=== PATIENT | male | born 1950 | race Caucasian/White ===

== ENCOUNTER → 2024-06-30 | Outpatient (CLI) | payer MEDICARE, SELFPAY ==
[2024-06-30 11:28] LABS: Basophils # (Auto) 0.1 Thou/mm3 (0.0-0.2); Basophils % (Auto) 1 % (0-2.5); Eosinophils # (Auto) 0.5 Thou/mm3 (0.0-0.5); Eosinophils % (Auto) 5 % (0-10); Hematocrit 47.3 % (41.0-53.0); Hemoglobin 15.7 g/dL (13.5-16.0); Immature Granulocytes % (Auto) 1 % (0-0); Immature Granulocytes Auto 0.08 Thou/mm3 (0.00-0.00); Lymphocytes # (Auto) 3.5 Thou/mm3 (1.0-4.8); Lymphocytes % (Auto) 36 % (10-50); Mean Corpuscular HGB Conc 33.2 g/dl (31.0-37.0); Mean Corpuscular Hemoglobin 30.5 pg (25.0-35.0); Mean Corpuscular Volume 92 fL (80-100); Monocytes # (Auto) 0.7 Thou/mm3 (0.0-0.8); Monocytes % (Auto) 7 % (0-12); Neutrophils % (Auto) 51 % (37-80); Nucleated Red Blood Cell % 0 /100 WBC (0); Platelet Count 176 Thou/mm3 (140-440); RDW Standard Deviation 45.6 fL (35.1-43.9); Red Blood Count 5.15 Miln/mm3 (4.50-5.90); White Blood Count 9.8 Thou/mm3 (3.8-10.6)
[2024-06-30 12:02] LABS: Alanine Aminotransferase 21 U/L (10-49); Albumin, Serum 4.8 gm/dL (3.4-4.8); Albumin/Globulin Ratio 1.8 (1.2-2.2); Alkaline Phosphatase 77 U/L (46-116); Anion Gap 8 (7-16); Aspartate Amino Transferase 18 U/L (0-34); BUN/Creatinine Ratio 14 Ratio (12-20); Bilirubin,Total 0.5 mg/dL (0.3-1.2); Blood Urea Nitrogen 23 mg/dL (9-23); Calcium 9.6 mg/dL (8.3-10.6); Calcium (Corrected) 9.6 mg/dL (8.5-10.1); Carbon Dioxide 27.3 mMol/L (20.0-31.0); Chloride 106 mMol/L (98-107); Creatinine (Component) 1.6 mg/dL (0.6-1.3); Globulin 2.6 gm/dL (2.3-3.5); Glucose 101 mg/dL (74-106); Osmolality,Calculated 284 (275-295); Potassium 5.1 mMol/L (3.4-5.1); Sodium 141 mMol/L (136-145); Total Protein 7.4 gm/dL (5.7-8.2); eGFR 45 See Note
== END | disposition home or self-care (01) ==
LOC: COPL 10:48
PROVIDERS: PCP Internal Medicine; Referring Provider Urology; Visit Provider Urology
DX: N40.1 Benign prostatic hyperplasia with lower urinary tract symptoms (principal)
CPT/HCPCS: 36415; 80053; 85025

== ENCOUNTER → 2024-07-05 | Outpatient (BNVA) | payer MEDICARE, SELFPAY | END | disposition home or self-care (01) | PROVIDERS: PCP Internal Medicine; Referring Provider Internal Medicine; Visit Provider Urology | DX: C64.1 Malignant neoplasm of right kidney, except renal pelvis (principal); N40.0 Benign prostatic hyperplasia without lower urinary tract symptoms; I12.9 Hypertensive chronic kidney disease with stage 1 through stage 4 chronic kidney disease, or unspecified chronic kidney disease; N18.30 Chronic kidney disease, stage 3 unspecified; E66.01 Morbid (severe) obesity due to excess calories; Z68.41 Body mass index [BMI] 40.0-44.9, adult | CPT/HCPCS: 81003; 99212; G0463 ==

== ENCOUNTER → 2024-07-06 | Outpatient (CLI) | payer MEDICARE, SELFPAY ==
--- NOTE | 2024-07-06 09:46 | XR_ITS ---
Examination: PA lateral chest 2 views TECHNIQUE: Upright PA lateral chest 2 views Exam date and time: June 28, 2024 1016 hours INDICATIONS: Pulmonary nodules noted on CT chest 02/25/2024 FINDINGS: Subtle opacity at the left apex obscuring detail left cardiac contour Normal heart size Prominent osteopenia IMPRESSION: Recommend repeat CT chest study to exclude mass versus parenchymal disease in the left upper lobe
== END | disposition home or self-care (01) ==
PROVIDERS: PCP Internal Medicine; Referring Provider Urology; Visit Provider Urology
DX: C64.1 Malignant neoplasm of right kidney, except renal pelvis (principal)
CPT/HCPCS: 71046

== ENCOUNTER → 2024-07-28 | Outpatient (CLI) | payer MEDICARE, SELFPAY ==
[2024-07-28 11:32] LABS: Basophils % (Auto) 1 % (0-2.5); Eosinophils # (Auto) 0.6 Thou/mm3 (0.0-0.5); Eosinophils % (Auto) 10 % (0-10); Hematocrit 45.6 % (41.0-53.0); Hemoglobin 15.2 g/dL (13.5-16.0); Immature Granulocytes % (Auto) 1 % (0-0); Immature Granulocytes Auto 0.03 Thou/mm3 (0.00-0.00); Lymphocytes # (Auto) 2.2 Thou/mm3 (1.0-4.8); Lymphocytes % (Auto) 35 % (10-50); Mean Corpuscular HGB Conc 33.3 g/dl (31.0-37.0); Mean Corpuscular Hemoglobin 30.5 pg (25.0-35.0); Mean Corpuscular Volume 92 fL (80-100); Monocytes # (Auto) 0.6 Thou/mm3 (0.0-0.8); Monocytes % (Auto) 10 % (0-12); Neutrophils # (Auto) 2.7 Thou/mm3 (1.8-7.7); Neutrophils % (Auto) 44 % (37-80); Nucleated Red Blood Cell % 0 /100 WBC (0); Platelet Count 143 Thou/mm3 (140-440); RDW Standard Deviation 45.4 fL (35.1-43.9); Red Blood Count 4.98 Miln/mm3 (4.50-5.90); White Blood Count 6.1 Thou/mm3 (3.8-10.6)
[2024-07-28 12:19] LABS: Parathyroid Hormone Intact 54.3 pg/ml (18.5-88.0)
[2024-07-28 12:21] LABS: Glucose Estimated Average 128 mg/dL (80-131); Hemoglobin A1C 6.1 % Hgb (4.8-6.0)
[2024-07-28 12:26] LABS: Alanine Aminotransferase 21 U/L (10-49); Albumin, Serum 4.4 gm/dL (3.4-4.8); Albumin/Globulin Ratio 1.6 (1.2-2.2); Alkaline Phosphatase 74 U/L (46-116); Anion Gap 8 (7-16); Aspartate Amino Transferase 20 U/L (0-34); BUN/Creatinine Ratio 14 Ratio (12-20); Bilirubin,Total 0.5 mg/dL (0.3-1.2); Blood Urea Nitrogen 20 mg/dL (9-23); Calcium 9.8 mg/dL (8.3-10.6); Calcium (Corrected) 9.8 mg/dL (8.5-10.1); Carbon Dioxide 28.3 mMol/L (20.0-31.0); Cardiac Risk Estimate 4.7 RATIO (4.0-6.7); Chloride 106 mMol/L (98-107); Cholesterol 161 mg/dL (132-200); Creatinine (Component) 1.4 mg/dL (0.6-1.3); Globulin 2.7 gm/dL (2.3-3.5); Glucose 99 mg/dL (74-106); HDL Cholesterol 34 mg/dL (40-60); LDL Cholesterol,Calculated 103 mg/dL (0-130); Osmolality,Calculated 285 (275-295); Potassium 4.8 mMol/L (3.4-5.1); Sodium 142 mMol/L (136-145); Total Protein 7.1 gm/dL (5.7-8.2); Triglycerides 120 mg/dL (30-150); eGFR 53 See Note
== END | disposition home or self-care (01) ==
LOC: COPL 10:16
PROVIDERS: PCP Internal Medicine; Referring Provider Internal Medicine; Visit Provider Internal Medicine
DX: I12.9 Hypertensive chronic kidney disease with stage 1 through stage 4 chronic kidney disease, or unspecified chronic kidney disease (principal); N18.30 Chronic kidney disease, stage 3 unspecified; E78.5 Hyperlipidemia, unspecified; R73.03 Prediabetes
CPT/HCPCS: 36415; 80053; 80061; 83036; 83970; 85025

== ENCOUNTER → 2024-09-16 | Outpatient (CLI) | payer MEDICARE, SELFPAY ==
[2024-09-16 10:06] LABS: Alanine Aminotransferase 16 U/L (10-49); Albumin, Serum 4.3 gm/dL (3.4-4.8); Albumin/Globulin Ratio 1.5 (1.2-2.2); Alkaline Phosphatase 71 U/L (46-116); Anion Gap 7 (7-16); Aspartate Amino Transferase 17 U/L (0-34); BUN/Creatinine Ratio 15 Ratio (12-20); Bilirubin,Total 0.5 mg/dL (0.3-1.2); Blood Urea Nitrogen 25 mg/dL (9-23); Calcium 9.4 mg/dL (8.3-10.6); Calcium (Corrected) 9.4 mg/dL (8.5-10.1); Carbon Dioxide 25.6 mMol/L (20.0-31.0); Chloride 107 mMol/L (98-107); Creatinine (Component) 1.7 mg/dL (0.6-1.3); Globulin 2.8 gm/dL (2.3-3.5); Glucose 119 mg/dL (74-106); Osmolality,Calculated 284 (275-295); Potassium 4.7 mMol/L (3.4-5.1); Sodium 140 mMol/L (136-145); Total Protein 7.1 gm/dL (5.7-8.2); eGFR 42 See Note
== END | disposition home or self-care (01) ==
LOC: COPL 08:15
PROVIDERS: PCP Internal Medicine; Referring Provider Urology; Visit Provider Urology
DX: C64.1 Malignant neoplasm of right kidney, except renal pelvis (principal)
CPT/HCPCS: 36415; 80053

== ENCOUNTER → 2024-09-22 | Outpatient (CLI) | payer MEDICARE, SELFPAY ==
--- NOTE | 2024-09-22 11:00 | XR_ITS ---
Examination: CT chest with intravenous contrast 2-D sagittal and coronal reconstructions Exam date and time: September 22, 2024 1057 hours Comparison 02/24/2014 INDICATIONS: Diagnosis malignant neoplasm right kidney 2023, bilateral pulmonary nodules on CT chest 02/25/2024 weeks staging CTDI:vol (mGy) 25.2 DLP: (mGycm) 1042 Technique: Multiple axial sections of the thorax have been obtained. Sections have been obtained, 3 mm slice thickness. Mediastinal and lung density settings have been obtained. Intravenous contrast administered, 30 cc Isovue-300. 2-D sagittal, coronal images obtained. Low dose protocols were performed. One or more of the following dose reduction techniques were used; automated exposure control, adjustment of the mA and/or KV according to patient size, use of iterative reconstruction technique. Findings: Stable tiny lymph nodes in the high left periaortic region No thoracic aortic aneurysm dilatation Pulmonary artery filling defects not identified No interval paratracheal tracheobronchial or bronchopulmonary adenopathy Bilateral lung nodules again noted Nodule in the left lower lobe measures 11 mm compared to 5 mm on 02/25/2024 No interval pneumonia or pulmonary edema No visualized liver or splenic lesion No gallstones Absent right kidney IMPRESSION: Enlarging nodule in the left lower lobe, 11 mm currently compared to 5 mm on 02/25/2024 suspicious for pulmonary nodular metastatic disease
--- NOTE | 2024-09-22 11:30 | XR_ITS ---
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 CTDI: vol (mGy) 34 DLP: (mGycm) 2263 Technique: Multiple axial sections of the abdomen and pelvis have been obtained. 64 slice high-resolution scanner used. 3 mm axial sections have been obtained, post intravenous injection 30 cc Isovue-300 2-D sagittal, coronal reconstructions obtained. Low dose protocols were performed. One or more of the following dose reduction techniques were used; automated exposure control, adjustment of the mA and/or KV according to patient size, use of iterative reconstruction technique. Findings: No focal liver or splenic lesions No gallstones No pancreatic mass Absent right kidney No enhancing left renal mass lesion No interval abdominal or pelvic lymphadenopathy No bowel obstruction Absent appendix No diverticulitis No bladder mass or bladder calculi Transverse prostate dimension 5.2 cm Advanced disc narrowing L4-L5, L5-S1 IMPRESSION: No interval metastatic disease
== END | disposition home or self-care (01) ==
PROVIDERS: PCP Internal Medicine; Referring Provider Urology; Visit Provider Urology
DX: R91.8 Other nonspecific abnormal finding of lung field (principal); C64.1 Malignant neoplasm of right kidney, except renal pelvis
CPT/HCPCS: 71260; 74177; A4649; Q9967

== ENCOUNTER → 2024-11-23 | Outpatient (CLI) | payer MEDICARE, SELFPAY ==
[2024-11-23 08:10] LABS: Collection Type, Urine Clean Catch
[2024-11-23 08:40] LABS: Basophils # (Auto) 0.1 Thou/mm3 (0.0-0.2); Basophils % (Auto) 1 % (0-2.5); Eosinophils # (Auto) 0.3 Thou/mm3 (0.0-0.5); Eosinophils % (Auto) 3 % (0-10); Hematocrit 49.9 % (41.0-53.0); Hemoglobin 16.6 g/dL (13.5-16.0); Immature Granulocytes % (Auto) 1 % (0-0); Immature Granulocytes Auto 0.04 Thou/mm3 (0.00-0.00); Lymphocytes # (Auto) 3.1 Thou/mm3 (1.0-4.8); Lymphocytes % (Auto) 37 % (10-50); Mean Corpuscular HGB Conc 33.3 g/dl (31.0-37.0); Mean Corpuscular Hemoglobin 30.7 pg (25.0-35.0); Mean Corpuscular Volume 92 fL (80-100); Monocytes # (Auto) 0.6 Thou/mm3 (0.0-0.8); Monocytes % (Auto) 7 % (0-12); Neutrophils # (Auto) 4.5 Thou/mm3 (1.8-7.7); Neutrophils % (Auto) 52 % (37-80); Nucleated Red Blood Cell % 0 /100 WBC (0); Platelet Count 168 Thou/mm3 (140-440); RDW Standard Deviation 46.5 fL (35.1-43.9); White Blood Count 8.6 Thou/mm3 (3.8-10.6)
[2024-11-23 08:46] LABS: Glucose Estimated Average 131 mg/dL (80-131); Hemoglobin A1C 6.2 % Hgb (4.8-6.0)
[2024-11-23 08:47] LABS: Bilirubin,Urine Negative (Negative); Blood,Urine Negative (Negative); Clarity,Urine Clear (Clear/Hazy); Color,Urine Yellow (Lt Yel-Yel); Glucose, Urine Negative (Negative); Ketones,Urine Negative (Negative); Leukocyte Esterase,Urine Negative (Negative); Nitrite,Urine Negative (Negative); PH,Urine 5.5 (5.0-7.0); Protein,Urine Negative (Neg - Trace); RBC,Urine 1 /hpf (0-3); Specific Gravity,Urine 1.018 (1.001-1.035); Squamous Epithelial Cell,Urine < 1 /hpf (0-5); Urobilinogen,Urine Negative mg/dL (0.0-1.0); WBC,Urine < 1 /hpf (0-5)
[2024-11-23 08:54] LABS: Parathyroid Hormone Intact 25.4 pg/ml (18.5-88.0)
[2024-11-23 09:08] LABS: Alanine Aminotransferase 20 U/L (10-49); Albumin, Serum 4.4 gm/dL (3.4-4.8); Albumin/Globulin Ratio 1.7 (1.2-2.2); Alkaline Phosphatase 71 U/L (46-116); Anion Gap 11 (7-16); Aspartate Amino Transferase 17 U/L (0-34); BUN/Creatinine Ratio 12 Ratio (12-20); Bilirubin,Total 0.5 mg/dL (0.3-1.2); Blood Urea Nitrogen 20 mg/dL (9-23); Calcium 9.5 mg/dL (8.3-10.6); Calcium (Corrected) 9.5 mg/dL (8.5-10.1); Carbon Dioxide 26.1 mMol/L (20.0-31.0); Cardiac Risk Estimate 4.2 RATIO (4.0-6.7); Chloride 105 mMol/L (98-107); Cholesterol 180 mg/dL (132-200); Creatinine (Component) 1.7 mg/dL (0.6-1.3); Globulin 2.6 gm/dL (2.3-3.5); Glucose 123 mg/dL (74-106); HDL Cholesterol 43 mg/dL (40-60); LDL Cholesterol,Calculated 102 mg/dL (0-130); Osmolality,Calculated 286 (275-295); Potassium 4.5 mMol/L (3.4-5.1); Sodium 142 mMol/L (136-145); Triglycerides 175 mg/dL (30-150); eGFR 42 See Note
== END | disposition home or self-care (01) ==
LOC: COPL 07:36
PROVIDERS: PCP Internal Medicine; Referring Provider Internal Medicine; Visit Provider Internal Medicine
DX: I12.9 Hypertensive chronic kidney disease with stage 1 through stage 4 chronic kidney disease, or unspecified chronic kidney disease (principal); N18.30 Chronic kidney disease, stage 3 unspecified; E78.5 Hyperlipidemia, unspecified
CPT/HCPCS: 36415; 80053; 80061; 81001; 83036; 83970; 85025

== ENCOUNTER → 2024-11-30 | Outpatient (BNVA) | payer MEDICARE, SELFPAY | END | disposition home or self-care (01) | PROVIDERS: PCP Internal Medicine; Referring Provider Internal Medicine; Visit Provider Urology | DX: N40.1 Benign prostatic hyperplasia with lower urinary tract symptoms (principal); N13.8 Other obstructive and reflux uropathy; C64.1 Malignant neoplasm of right kidney, except renal pelvis; I12.9 Hypertensive chronic kidney disease with stage 1 through stage 4 chronic kidney disease, or unspecified chronic kidney disease; N18.30 Chronic kidney disease, stage 3 unspecified; E78.5 Hyperlipidemia, unspecified; E66.01 Morbid (severe) obesity due to excess calories; Z68.41 Body mass index [BMI] 40.0-44.9, adult; Z90.5 Acquired absence of kidney | CPT/HCPCS: 81003; 99212; G0463 ==

== ENCOUNTER 2025-01-11 08:14 | Outpatient (AMB) | payer MEDICARE, SELFPAY ==
--- NOTE | 2025-01-11 08:19 | PD.ORTHCLVIS ---
Vital signs 01/11/25 08:28 Height 1.83 m Height Method Measured Weight 141.152 kg Weight Measurement Method Standing Scale BMI 42.1 BP 173/77 H Blood Pressure Source Automatic Cuff Blood Pressure Location Left Upper Arm Position Sitting Respiration 18 Pulse 78 Pulse Source Monitor Temp 97.9 F Temp Source Temporal Artery Scan Pulse Oximetry (%) 96 Oxygen Delivery Method Room Air Med/Allergies Allergies & Medications Allergies No Known Allergies Allergy (Verified 01/11/25 08:29) Medication Reconciliation atorvastatin 20 mg tablet 20 mg PO QDAY 01/11/25 [History Confirmed 01/11/25] hydralazine 50 mg tablet 50 mg PO TID 01/11/25 [History Confirmed 01/11/25] metoprolol succinate 50 mg tablet,extended release 24 hr 50 mg PO QDAY 01/11/25 [History Confirmed 01/11/25] tamsulosin 0.4 mg capsule 0.4 mg PO QDAY 01/11/25 [History Confirmed 01/11/25] Exam Exam Patient is in no acute distress and is cooperative with the examination today. Breathing is nonlabored. Patient has a normal mood and affect. Bilateral extremities were evaluated and demonstrates sensation intact to light touch. Palpable pedal pulses are present. No significant edema is present. Bilateral hips were examined. The patient has no pain with log roll of the hips. Internal rotation to 30 degrees and external rotation to 30 degrees is painless. Negative FADIR. Right knee was examined today. The right knee is in reasonable alignment. Range of motion from 0-120 degrees. Knee is stable to varus and valgus as well as AP translation with <5mm. Patient has a negative McMurrays. There is no pain with patellofemoral compression and no crepitus noted. The knee is nontender to palpation. Left knee was examined today. The left knee is in varus alignment. Range of motion from 0-115 degrees. Knee is stable to varus and valgus as well as AP translation with <5mm. Patient has a negative McMurrays. There is no pain with patellofemoral compression and no crepitus noted. The knee is tender to palpation medially. Nonweightbearing x-rays from April 2024 demonstrates moderate arthritis Assessment and Plan Problem List (1) Arthritis of left knee: Status: Acute Plan: Patient is a pleasant 74-year-old male with left knee pain and left knee arthritis. I would like to get weightbearing x-rays. He cannot take anti-inflammatories due to his 1 kidney. I will see him back after new weightbearing x-rays. We will likely do injections at the next visit. It is almost hunting season for him and he would like to get back to Advanced Care Planning Discussion Advance care planning discussed with:: patient Office Procedures GNS Level of Care Nursing/Assessment Patient Status: Initial/New Patient Nursing Assessment/Reassesment: Medication Reconciliation, Update PMH in EMR and Vital Signs Coordination of Care: Complex Care and Chronic Disease 1-5, Education Complex Pt/Fam, Consent,records obtained, informed consent, Lab and Imaging orders, Results/Orders obtained and Staff clarify orders New Patient Charge New Patient Point Assignment: 1109 New Patient Point Charge: INTERVENTION MANAGER Level 3 ([id number]) MA Intake Visit Data Collection New Patient or Established: New Patient (never been to [facility] [place] Reason for Visit:: LEFT KNEE PAIN Seen by Clinical Staff ONLY (RN/MA): No Autotransfusionist Required: No PCP or OBGYN visit in last 3 months: Yes Hx Now: No Do You Feel Safe at Home: Yes Authorities Contacted: N/A Questionairres Past Medical History Past Medical History Have you ever been diagnosed with any of the following: Cardiology Problems Hypercholesterolemia: Yes Respiratory Problems Smoking: No Smoking Cessation Counseling: No Smoking Exposure: No Subjective Visit Visit for: new patient, follow up visit and knee Immunization / Flu Flu Vaccine in the Last 12 Months: No Flu Vaccine Exclusion Criteria: Refused by Patient History of Present Illness Chief complaint: LEFT KNEE PAIN Date of injury / onset of symptoms: 2023 Patient is a pleasant 74-year-old male who is an avid gus with the left knee pain. This hs been ongoing for a while. He has not had any significant conservative management in the past. He has not had any injections in his 1 kidney and cannot take anti-inflammatories Personal History Occupation: RETIRED Red flag PMH: none BMI Counceling provided: Yes Pain Pain level (0-10): 2 Pain location: outside (lateral) and posterior Pain quality: aching and burning Pain timing: increases with activity and stairs Associated signs & symptoms: none Ambulatory data Ambulatory device: none Treatments Improvement with previous injections: No Improvement with PT: No Improvement with NSAIDS: no Review of Systems Review of Systems: All systems negative unless otherwise noted in HPI.
[2025-01-11 08:28] VITALS: BP 173/77; PULSE 78; RESP 18; TEMP 36.6; O2SAT 96; BMI 42.1
--- NOTE | 2025-01-11 08:42 | XR_ITS ---
Examination: Bilateral knees 2 views Right lateral knee left lateral knee 2 views Right axial left axial knee 2 views TECHNIQUE: Bilateral AP knees standing single view, bilateral PA knees standing single view flexion Standing right lateral knee left lateral knee 2 views Right axial knee left axial knee 2 views total 6 views Date and time: January 11, 2025 0857 hours INDICATIONS: Knee pain paresthesias one year. 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
== END 2025-01-11 08:51 | disposition home or self-care (01) ==
LOC: HODSRG 08:14
PROVIDERS: PCP Internal Medicine; Referring Provider Internal Medicine; Supervising Provider Orthopaedic Surgery Adult Reconstructive Orthopaedic Surgery; Visit Provider Orthopaedic Surgery Adult Reconstructive Orthopaedic Surgery
DX: M17.0 Bilateral primary osteoarthritis of knee (principal); E78.00 Pure hypercholesterolemia, unspecified
CPT/HCPCS: 73564; 99203; G0463

== ENCOUNTER → 2025-01-25 | Outpatient (CLI) | payer MEDICARE, SELFPAY ==
[2025-01-25 10:38] LABS: Prostate Specific Antigen 1.44 ng/mL (0-4.00)
[2025-01-25 10:39] LABS: Alanine Aminotransferase 18 U/L (10-49); Albumin, Serum 4.4 gm/dL (3.4-4.8); Albumin/Globulin Ratio 1.8 (1.2-2.2); Alkaline Phosphatase 71 U/L (46-116); Anion Gap 8 (7-16); Aspartate Amino Transferase 22 U/L (0-34); BUN/Creatinine Ratio 11 Ratio (12-20); Bilirubin,Total 0.6 mg/dL (0.3-1.2); Blood Urea Nitrogen 16 mg/dL (9-23); Calcium 9.7 mg/dL (8.3-10.6); Calcium (Corrected) 9.7 mg/dL (8.5-10.1); Carbon Dioxide 24.3 mMol/L (20.0-31.0); Chloride 108 mMol/L (98-107); Creatinine (Component) 1.5 mg/dL (0.6-1.3); Globulin 2.4 gm/dL (2.3-3.5); Glucose 111 mg/dL (74-106); Osmolality,Calculated 281 (275-295); Potassium 4.2 mMol/L (3.4-5.1); Sodium 140 mMol/L (136-145); Total Protein 6.8 gm/dL (5.7-8.2); eGFR 49 See Note
== END | disposition home or self-care (01) ==
LOC: COPL 09:08
PROVIDERS: PCP Internal Medicine; Referring Provider Urology; Visit Provider Urology
DX: N40.1 Benign prostatic hyperplasia with lower urinary tract symptoms (principal)
CPT/HCPCS: 36415; 80053; 84153; 85025

== ENCOUNTER 2025-02-03 08:39 | Outpatient (AMB) | payer MEDICARE, SELFPAY ==
--- NOTE | 2025-02-03 08:42 | PD.ORTHCLVIS ---
Vital signs 02/03/25 08:52 Height 1.83 m Height Method Stated Weight 136.73 kg Weight Measurement Method Standing Scale BMI 40.8 BP 134/70 H Blood Pressure Source Automatic Cuff Blood Pressure Location Left Upper Arm Position Sitting Respiration 18 Pulse 80 Pulse Source Monitor Temp 97.3 F Temp Source Temporal Artery Scan Pulse Oximetry (%) 95 Oxygen Delivery Method Room Air Med/Allergies Allergies & Medications Allergies No Known Allergies Allergy (Verified 02/03/25 08:53) Medication Reconciliation atorvastatin 20 mg tablet 20 mg PO QDAY 01/11/25 [History Confirmed 02/03/25] hydralazine 50 mg tablet 50 mg PO TID 01/11/25 [History Confirmed 02/03/25] metoprolol succinate 50 mg tablet,extended release 24 hr 50 mg PO QDAY 01/11/25 [History Confirmed 02/03/25] tamsulosin 0.4 mg capsule 0.4 mg PO QDAY 01/11/25 [History Confirmed 02/03/25] Exam Exam Patient is in no acute distress and is cooperative with the examination today. Breathing is nonlabored. Patient has a normal mood and affect. Bilateral extremities were evaluated and demonstrates sensation intact to light touch. Palpable pedal pulses are present. No significant edema is present. Bilateral hips were examined. The patient has no pain with log roll of the hips. Internal rotation to 30 degrees and external rotation to 30 degrees is painless. Negative FADIR. Right knee was examined today. The right knee is in reasonable alignment. Range of motion from 0-120 degrees. Knee is stable to varus and valgus as well as AP translation with <5mm. Patient has a negative McMurrays. There is no pain with patellofemoral compression and no crepitus noted. The knee is nontender to palpation. Left knee was examined today. The left knee is in varus alignment. Range of motion from 0-115 degrees. Knee is stable to varus and valgus as well as AP translation with <5mm. Patient has a negative McMurrays. There is no pain with patellofemoral compression and no crepitus noted. The knee is tender to palpation medially. Weightbearing x-rays demonstrate severe arthritis of both knees with complete obliteration of the medial joint space Assessment and Plan Problem List (1) Arthritis of left knee: Status: Acute Plan: Patient is a pleasant 74-year-old male with left knee pain and left knee arthritis. I would like to get weightbearing x-rays. He cannot take anti-inflammatories due to his 1 kidney. I will see him back after new weightbearing x-rays. He would like an injection of the left knee today. Recommend knee cortisone injection as patient would like to proceed with conservative treatment at this time. The risks and benefits of the procedure were reviewed with the patient and patient gave verbal consent to continue with the procedure. Procedure: performed by Dr. Villarreal Using sterile technique the left knee was thoroughly prepped with alcohol, and approximately 1 cc of Depo-Medrol 80mg/mL and 4 cc of 0.2% ropivacaine was injected without resistance into the medial tibial femoral joint space. The patient tolerated the procedure. Advanced Care Planning Discussion Advance care planning discussed with:: patient Office Procedures GNS Level of Care Nursing/Assessment Patient Status: Established Patient Nursing Assessment/Reassesment: Medication Reconciliation, Orthostatic Vitals, Update PMH in EMR and Vital Signs Coordination of Care: Complex Care and Chronic Disease 1-5, Education Complex Pt/Fam, Consent,records obtained, informed consent, Results/Orders obtained and Staff clarify orders Established Patient Charge Established Patient Point Assignment: 105 Established Patient Point Charge: EP Level 3 (80-115) Surgical Proc/IM SQ injection Major Surgical Procedure: Yes (LEFT KNEE INJECTION) Medication Given Medication Given Medication Given: Yes Documented Dose Given: 1 Route: Infiitration Medication Given Medication Given Medication Given: Yes Documented Dose Given: 4 Route: Infiitration Office Meds methylprednisolone acetate 80 mg/mL suspension for injection Performing Provider: Pelon Villarreal MD Performing Location: [facility] Administered by: Pelon Villarreal MD on 02/03/25 09:12 Dose Route Admin Location Dispensed Lot Number Expiration Date [facility] Mental Health Therapist 80 mg intra-articular 1 mL [id number] 11/06/26 [address]-5 [employer] ropivacaine (PF) 2 mg/mL (0.2 %) injection solution Performing Provider: Pelon Villarreal MD Performing Location: [facility] Administered by: Pelon Villarreal MD on 02/03/25 09:12 Dose Route Admin Location Dispensed Lot Number Expiration Date [facility] Mental Health Therapist 20 mL Infiltration KNEE 20 mL [id number] 07/09/27 82467-004-47 [facility] Intake Visit Data Collection New Patient or Established: Established Patient (seen at [facility] within 3 years) Reason for Visit:: LEFT KNEE XRAY RESULTS Seen by Clinical Staff ONLY (RN/MA): No Philosophy Lecturer Required: No PCP or OBGYN visit in last 3 months: Yes Hx Now: No Do You Feel Safe at Home: Yes Authorities Contacted: N/A Questionairres Past Medical History Past Medical History Have you ever been diagnosed with any of the following: Cardiology Problems Hypercholesterolemia: Yes Respiratory Problems Smoking: No Smoking Cessation Counseling: No Smoking Exposure: No Subjective Visit Visit for: follow up visit, knee and x-rays Immunization / Flu Flu Vaccine in the Last 12 Months: No Flu Vaccine Exclusion Criteria: Refused by Patient History of Present Illness Chief complaint: LEFT KNEE PAIN Date of injury / onset of symptoms: 2023 Patient is a pleasant 74-year-old male who is an avid gus with the left knee pain. This hs been ongoing for a while. He has not had any significant conservative management in the past. He has not had any injections in his 1 kidney and cannot take anti-inflammatories He has lost 15 pounds since we last saw him Personal History Occupation: RETIRED Red flag PMH: none BMI Counceling provided: Yes Pain Pain level (0-10): 2 Pain location: posterior Pain quality: aching Pain timing: increases with activity and stairs Associated signs & symptoms: none Ambulatory data Ambulatory device: none Treatments Improvement with previous injections: No Improvement with PT: No Improvement with NSAIDS: no Review of Systems Review of Systems: All systems negative unless otherwise noted in HPI.
[2025-02-03 08:52] VITALS: BP 134/70; PULSE 80; RESP 18; TEMP 36.3; O2SAT 95; BMI 40.8
== END 2025-02-03 09:21 | disposition home or self-care (01) ==
LOC: HODSRG 08:39
PROVIDERS: PCP Internal Medicine; Referring Provider Internal Medicine; Supervising Provider Orthopaedic Surgery Adult Reconstructive Orthopaedic Surgery; Visit Provider Orthopaedic Surgery Adult Reconstructive Orthopaedic Surgery
DX: M17.12 Unilateral primary osteoarthritis, left knee (principal); M25.562 Pain in left knee
CPT/HCPCS: 20610; 99213; J1010; J2795; G0463

== ENCOUNTER 2025-04-26 14:23 | Outpatient (AMB) | payer MEDICARE, SELFPAY ==
[2025-04-26 14:40] VITALS: BP 143/72; PULSE 103; RESP 18; TEMP 36.4; O2SAT 95; BMI 39.5
--- NOTE | 2025-04-26 14:40 | ORTHONT_ITS ---
Vital signs 04/26/25 14:40 Height 1.83 m Height Method Stated Weight 132.449 kg Weight Measurement Method Standing Scale BMI 39.5 BP 143/72 H Blood Pressure Source Automatic Cuff Blood Pressure Location Right Upper Arm Position Sitting Respiration 18 Pulse 103 H Pulse Source Monitor Temp 97.5 F Temp Source Temporal Artery Scan Pulse Oximetry (%) 95 Oxygen Delivery Method Room Air Med/Allergies Allergies & Medications Allergies No Known Allergies Allergy (Verified 04/26/25 14:41) Medication Reconciliation atorvastatin 20 mg tablet 20 mg PO QDAY 01/11/25 [History Confirmed 04/26/25] hydralazine 50 mg tablet 50 mg PO TID 01/11/25 [History Confirmed 04/26/25] metoprolol succinate 50 mg tablet,extended release 24 hr 50 mg PO QDAY 01/11/25 [History Confirmed 04/26/25] tamsulosin 0.4 mg capsule 0.4 mg PO QDAY 01/11/25 [History Confirmed 04/26/25] Exam Exam Patient is in no acute distress and is cooperative with the examination today. Breathing is nonlabored. Patient has a normal mood and affect. Bilateral extremities were evaluated and demonstrates sensation intact to light touch. Palpable pedal pulses are present. No significant edema is present. Bilateral hips were examined. The patient has no pain with log roll of the hips. Internal rotation to 30 degrees and external rotation to 30 degrees is painless. Negative FADIR. Right knee was examined today. The right knee is in reasonable alignment. Range of motion from 0-120 degrees. Knee is stable to varus and valgus as well as AP translation with <5mm. Patient has a negative McMurrays. There is no pain with patellofemoral compression and no crepitus noted. The knee is nontender to palpation. Left knee was examined today. The left knee is in varus alignment. Range of motion from 0-115 degrees. Knee is stable to varus and valgus as well as AP translation with <5mm. Patient has a negative McMurrays. There is no pain with patellofemoral compression and no crepitus noted. The knee is tender to palpation medially. Weightbearing x-rays demonstrate severe arthritis of both knees with complete obliteration of the medial joint space Assessment and Plan Problem List (1) Arthritis of left knee: Status: Acute Plan: Patient is a pleasant 74-year-old male with left knee pain and left knee arthritis. I would like to get weightbearing x-rays. He cannot take anti- inflammatories due to his 1 kidney. Recommend knee cortisone injection as patient would like to proceed with conservative treatment at this time. The risks and benefits of the procedure were reviewed with the patient and patient gave verbal consent to continue with the procedure. Procedure: performed by Dr. Villarreal Using sterile technique the Right knee was thoroughly prepped with alcohol, and approximately 1 cc of Depo-Medrol 80mg/mL and 4 cc of 0.2% ropivacaine was injected without resistance into the medial tibial femoral joint space. The patient tolerated the procedure. Recommend knee cortisone injection as patient would like to proceed with conservative treatment at this time. The risks and benefits of the procedure were reviewed with the patient and patient gave verbal consent to continue with the procedure. Procedure: performed by Dr. Villarreal Using sterile technique the leftknee was thoroughly prepped with alcohol, and approximately 1 cc of Depo- Medrol 80mg/mL and 4 cc of 0.2% ropivacaine was injected without resistance into the medial tibial femoral joint space. The patient tolerated the procedure. Advanced Care Planning Discussion Advance care planning discussed with:: patient Office Procedures GNS Level of Care Nursing/Assessment Patient Status: Established Patient Nursing Assessment/Reassesment: Medication Reconciliation, Update PMH in EMR and Vital Signs Coordination of Care: Complex Care and Chronic Disease 1-5, Education Complex Pt/Fam, Consent,records obtained, informed consent, Results/Orders obtained and Staff clarify orders Established Patient Charge Established Patient Point Assignment: 95 Established Patient Point Charge: EP Level 3 (80-115) Surgical Proc/IM SQ injection Minor Surgical Procedure: Yes MA Intake Visit Data Collection New Patient or Established: Established Patient (seen at [facility] within 3 years) Reason for Visit:: 3 MONTH KNEE INJECTION F/U Seen by Clinical Staff ONLY (RN/MA): No Verbal consent obtained for Telemed visit?: No Search Engine Marketing Manager Required: No PCP or OBGYN visit in last 3 months: Yes Hx Now: No Do You Feel Safe at Home: Yes Authorities Contacted: N/A Questionairres Past Medical History Past Medical History Have you ever been diagnosed with any of the following: Cardiology Problems Hypercholesterolemia: Yes Respiratory Problems Smoking: No Smoking Cessation Counseling: No Smoking Exposure: No Subjective Visit Visit for: follow up visit and knee Immunization / Flu Flu Vaccine in the Last 12 Months: No Flu Vaccine Exclusion Criteria: No Exclusion Criteria History of Present Illness Chief complaint: 3 MONTH KNEE INJECTION Date of injury / onset of symptoms: 2023 Patient is a pleasant 74-year-old male who is an avid gus with the left knee pain. This hs been ongoing for a while. He has not had any significant conservative management in the past. He has not had any injections in his 1 kidney and cannot take anti-inflammatories He has lost 10 pounds since we last saw him Personal History Occupation: RETIRED Red flag PMH: BMI BMI Counceling provided: Yes Pain Pain level (0-10): 5 Pain duration: ALL DAY Pain location: inside (medial), outside (lateral), anterior and posterior Pain quality: sharp, dull and aching Pain timing: increases with activity Associated signs & symptoms: numbness, weakness and stiffness Ambulatory data Ambulatory device: none Treatments Number of previous injections: 2 Improvement with previous injections: Yes Improvement with PT: No Improvement with NSAIDS: no Review of Systems Review of Systems: All systems negative unless otherwise noted in HPI.
== END 2025-04-26 14:57 | disposition home or self-care (01) ==
LOC: HODSRG 14:23
PROVIDERS: PCP Internal Medicine; Referring Provider Internal Medicine; Supervising Provider Orthopaedic Surgery Adult Reconstructive Orthopaedic Surgery; Visit Provider Orthopaedic Surgery Adult Reconstructive Orthopaedic Surgery
DX: M25.562 Pain in left knee (principal); M17.0 Bilateral primary osteoarthritis of knee
CPT/HCPCS: 20610; 99213; J1010; J2795; G0463

== ENCOUNTER → 2025-05-19 | Outpatient (CLI) | payer MEDICARE, SELFPAY ==
[2025-05-19 08:46] LABS: Basophils # (Auto) 0.1 Thou/mm3 (0.0-0.2); Basophils % (Auto) 1 % (0-2.5); Eosinophils # (Auto) 0.3 Thou/mm3 (0.0-0.5); Eosinophils % (Auto) 3 % (0-10); Hematocrit 48.5 % (41.0-53.0); Hemoglobin 15.7 g/dL (13.5-16.0); Immature Granulocytes Auto 0.03 Thou/mm3 (0.00-0.00); Lymphocytes # (Auto) 3.3 Thou/mm3 (1.0-4.8); Lymphocytes % (Auto) 33 % (10-50); Mean Corpuscular HGB Conc 32.4 g/dl (31.0-37.0); Mean Corpuscular Hemoglobin 30.0 pg (25.0-35.0); Mean Corpuscular Volume 93 fL (80-100); Monocytes # (Auto) 0.7 Thou/mm3 (0.0-0.8); Monocytes % (Auto) 7 % (0-12); Neutrophils # (Auto) 5.8 Thou/mm3 (1.8-7.7); Neutrophils % (Auto) 57 % (37-80); Nucleated Red Blood Cell # 0.00 Thou/mm3 (0.00-0.00); Nucleated Red Blood Cell % 0 /100 WBC (0); Platelet Count 159 Thou/mm3 (140-440); RDW Standard Deviation 50.3 fL (35.1-43.9); Red Blood Count 5.23 Miln/mm3 (4.50-5.90); White Blood Count 10.2 Thou/mm3 (3.8-10.6)
[2025-05-19 08:56] LABS: Creatinine MALB Rnd Ur > 245 mg/dL (30-125); Microalbumin Creat Ratio 14 mg/gCrea (<30); Microalbumin, Random Urine 36 mg/L (0-300)
[2025-05-19 09:01] LABS: Albumin, Serum 4.5 gm/dL (3.4-4.8); Anion Gap 11 (7-16); BUN/Creatinine Ratio 14 Ratio (12-20); Blood Urea Nitrogen 24 mg/dL (9-23); Calcium 9.2 mg/dL (8.3-10.6); Calcium (Corrected) 9.2 mg/dL (8.5-10.1); Carbon Dioxide 25.1 mMol/L (20.0-31.0); Chloride 106 mMol/L (98-107); Creatinine (Component) 1.7 mg/dL (0.6-1.3); Glucose 125 mg/dL (74-106); Osmolality,Calculated 288 (275-295); Phosphorous 4.0 mg/dL (2.4-5.1); Potassium 4.6 mMol/L (3.4-5.1); Sodium 142 mMol/L (136-145); eGFR 42 See Note
== END | disposition home or self-care (01) ==
LOC: COPL 07:32
PROVIDERS: PCP Internal Medicine; Referring Provider Internal Medicine; Visit Provider Internal Medicine
DX: I12.9 Hypertensive chronic kidney disease with stage 1 through stage 4 chronic kidney disease, or unspecified chronic kidney disease (principal); N18.30 Chronic kidney disease, stage 3 unspecified
CPT/HCPCS: 36415; 80069; 82043; 82570; 85025

== ENCOUNTER → 2025-05-23 | Outpatient (CLI) | payer MEDICARE, SELFPAY ==
[2025-05-23 08:54] LABS: Alanine Aminotransferase 19 U/L (10-49); Albumin, Serum 4.7 gm/dL (3.4-4.8); Albumin/Globulin Ratio 1.6 (1.2-2.2); Alkaline Phosphatase 70 U/L (46-116); Anion Gap 10 (7-16); Aspartate Amino Transferase 14 U/L (0-34); BUN/Creatinine Ratio 17 Ratio (12-20); Bilirubin,Total 0.5 mg/dL (0.3-1.2); Blood Urea Nitrogen 25 mg/dL (9-23); Calcium 9.6 mg/dL (8.3-10.6); Calcium (Corrected) 9.6 mg/dL (8.5-10.1); Carbon Dioxide 23.9 mMol/L (20.0-31.0); Chloride 106 mMol/L (98-107); Creatinine (Component) 1.5 mg/dL (0.6-1.3); Globulin 3.0 gm/dL (2.3-3.5); Glucose 114 mg/dL (74-106); Osmolality,Calculated 284 (275-295); Potassium 4.7 mMol/L (3.4-5.1); Sodium 140 mMol/L (136-145); Total Protein 7.7 gm/dL (5.7-8.2); eGFR 49 See Note
[2025-05-23 12:57] LABS: Prostate Specific Antigen 1.72 ng/mL (0-4.00)
== END | disposition home or self-care (01) ==
LOC: COPL 07:26
PROVIDERS: PCP Urology; Referring Provider Urology; Visit Provider Urology
DX: N18.30 Chronic kidney disease, stage 3 unspecified (principal); C61 Malignant neoplasm of prostate
CPT/HCPCS: 36415; 80053; 84153

== ENCOUNTER → 2025-05-27 | Outpatient (BNVA) | payer MEDICARE, SELFPAY | END | disposition home or self-care (01) | PROVIDERS: PCP Internal Medicine; Referring Provider Internal Medicine; Visit Provider Urology | DX: Z08 Encounter for follow-up examination after completed treatment for malignant neoplasm (principal); N18.30 Chronic kidney disease, stage 3 unspecified; R03.0 Elevated blood-pressure reading, without diagnosis of hypertension; Z85.528 Personal history of other malignant neoplasm of kidney; Z90.5 Acquired absence of kidney | CPT/HCPCS: 81003; 99212; G0463 ==